=== PATIENT | female | born 1995 | race African-American/Black ===

== ENCOUNTER 2019-05-01 21:29 | Emergency (ER) | payer MEDICAID, OTHER ==
[~2019-05-01] VITALS: Ht 157.5 cm; Wt 83.3 kg
--- NOTE | 2019-05-01 22:10 | NUR ---
PT TO [facility]. PER [facility] TO DO CLEAN CATCH.
--- NOTE | 2019-05-01 22:22 | NUR ---
PT HAS RETURNED FROM [facility].
--- NOTE | 2019-05-01 22:30 | NUR ---
UA OBTAINED AND TUBED TO LAB.
[2019-05-01 23:13] LABS: MICROSCOPIC INDICATED
[2019-05-01 23:18] LABS: CULTURE INDICATED? NO
[2019-05-02 00:10] VITALS: BP 129/74
== END 2019-05-02 00:12 | disposition home or self-care (01) ==
LOC: ED 22:38
DX: O26.891 Other specified pregnancy related conditions, first trimester (principal); O20.0 Threatened abortion; Z3A.01 Less than 8 weeks gestation of pregnancy
CPT/HCPCS: 36415; 76801; 81001; 84702; 86901; 99284